=== PATIENT | male | born 1930 | race Caucasian/White ===

== ENCOUNTER → 2017-05-31 | Outpatient (CLI) | payer MEDICARE, MEDICAID ==
[~2017-05-31] VITALS: Ht 162.6 cm; Wt 72.6 kg
[~2017-05-31] MED LIST: ACET325T47 PO; AMLO-511 PO; ASPI-1182 PO; LISI-662 PO; METF850T2 PO; PANT40TA25 PO; PRAV40TA4 PO
[2017-05-31 10:32] VITALS: BP 128/68
== END | disposition home or self-care (01) ==
LOC: SRCNTR 10:18
PROVIDERS: ATTEND Internal Medicine Clinical Cardiac Electrophysiology
DX: Z45.02 Encounter for adjustment and management of automatic implantable cardiac defibrillator (principal); E11.9 Type 2 diabetes mellitus without complications; E78.00 Pure hypercholesterolemia, unspecified; I44.2 Atrioventricular block, complete; I10 Essential (primary) hypertension; K21.9 Gastro-esophageal reflux disease without esophagitis; Z79.82 Long term (current) use of aspirin
CPT/HCPCS: G0463